=== PATIENT | female | born 1955 | race Caucasian/White ===

== ENCOUNTER 2024-01-19 19:35 | Outpatient (CLI) | payer MEDICARE, BC | END 2024-01-19 23:59 | disposition short-term general hospital (02) | LOC: EMS 19:35 | DX: S09.92XA Unspecified injury of nose, initial encounter (principal); S00.11XA Contusion of right eyelid and periocular area, initial encounter; W01.198A Fall on same level from slipping, tripping and stumbling with subsequent striking against other object, initial encounter; Y93.01 Activity, walking, marching and hiking; Y92.007 Garden or yard of unspecified non-institutional (private) residence as the place of occurrence of the external cause | CPT/HCPCS: A0425; A0427 ==